=== PATIENT | male | born 1965 | race Caucasian/White ===

== ENCOUNTER 2021-07-13 23:20 | Inpatient (IN) | payer OTHER ==
[2021-07-14 01:30] VITALS: BMI 30.8
[2021-07-14] MEDS ORDERED: Ondansetron PF 4 MG/2 ML Vial IVP PRN (01:30)
[2021-07-14] MEDS ORDERED: Ondansetron ODT 4 MG TAB SL PRN (01:30)
[2021-07-14] MEDS ORDERED: Dextrose 5 %-0.45 % NaCl 1,000 ML IV SCH (01:30)
[2021-07-14] MEDS ORDERED: Acetaminophen 325 MG TAB PO PRN (01:30)
[2021-07-14] MEDS ORDERED: Acetaminophen 650 MG Suppository PR PRN (01:43)
[2021-07-14] MEDS: Sodium Chloride 0.9% 1,000 ML IV SCH ×3 (01:56→17:13)
[2021-07-14] MEDS ORDERED: Pantoprazole 40 MG VIAL IVP SCH (02:00)
[2021-07-14] MEDS ORDERED: hydrALAZINE 20 MG/ML VIAL SLOW IVP PRN (02:07)
[2021-07-14] MEDS ORDERED: Piperacillin/Tazobactam 3.375 GM in Sodium Chloride 0.9% 100 ML IVPB SCH (03:45)
[2021-07-14 04:13] LABS: #Lymphocytes 0.5 thou/uL (1.20-3.40); #Monocytes 0.2 thou/uL (0.11-0.59); #Neutrophils 1.9 thou/uL (1.40-6.50); %Basophils 0.7 % (0.0-1.0); %Eosinophils 0.8 % (0.0-10.0); %Lymphocytes 17.4 % (21.0-51.0); %Monocytes 8.8 % (0.0-10.0); %Neutrophils 72.4 % (42.0-75.0); Hemoglobin 15.4 g/dL (14.0-18.0); Mean Corpuscular HGB CONC 33.5 g/dL (32.0-36.0); Mean Corpuscular Hemoglobin 30.4 pg (27.0-31.0); Mean Corpuscular Volume 90.6 fL (78.0-98.0); Mean Platelet Volume 6.7 fL (7.4-10.4); Platelet Count 228 thou/uL (130-400); RBC Distribution Width 12.3 % (11.5-14.5); Red Blood Cell (RBC) Count 5.07 mill/uL (4.70-6.10); White Blood Cell (WBC) Count 2.7 thou/uL (4.8-10.8)
[2021-07-14 04:40] LABS: Phosphorus 3.2 mg/dL (2.3-4.7)
[2021-07-14 04:43] LABS: ALT (SGPT) 46 U/L (8-55); AST (SGOT) 45 U/L (5-34); Albumin 4.1 g/dL (3.5-5.0); Alkaline Phosphatase 116 U/L (40-110); Anion Gap 14 mmol/L (10-20); BUN (Urea Nitrogen) 17 mg/dL (8.4-25.7); Bilirubin, Total 1.2 mg/dL (0.2-1.2); Calc. Creatinine Clearance 86 mL/min (70-130); Calcium 8.5 mg/dL (7.8-10.44); Carbon Dioxide 22 mmol/L (22-29); Chloride 104 mmol/L (98-107); Globulin 2.7 g/dL (2.4-3.5); Glucose 135 mg/dL (70-105); Magnesium 1.8 mg/dL (1.6-2.6); Potassium 3.5 mmol/L (3.5-5.1); Protein, Total 6.8 g/dL (6.0-8.3); Sodium 136 mmol/L (136-145)
[2021-07-14] MEDS: Piperacillin/Tazobactam 3.375 GM in Sodium Chloride 0.9% 100 ML IVPB SCH ×2 (08:28→17:09)
[2021-07-14] MEDS: Pantoprazole 40 MG VIAL IVP SCH (08:28)
[2021-07-14 09:48] LABS: Iron 18 ug/dL (65-175); Iron Binding Capacity, Total 230 mcg/dL (261-462)
[2021-07-14 10:05] LABS: HBSAB Concentration Less than 8.00 mIU/mL; HBSAg Index 0.31 S/CO (0-0.99); Hep B Surf AB Non-Reactive (NonReactive); Hep B Surf Ag Non-Reactive S/CO (NonReactive)
[2021-07-14 10:06] LABS: Hep C IgG Ab Non-Reactive (NonReactive); Hep C Index 0.03 S/CO (0-0.79)
[2021-07-14] MEDS ORDERED: Cefepime 2 GM in Sodium Chloride 0.9% 100 ML IVPB SCH (11:00)
[2021-07-14] MEDS: VANCOMYCIN 1.25 GM/250 ML BAG 1.25 GM in Premix Bag 1 BAG IVPB SCH ×2 (13:08→23:07)
[2021-07-14] MEDS ORDERED: Iron, Sodium Ferric Gluconate 250 MG in Sodium Chloride 0.9% 250 ML 250 ML IVPB SCH (14:00)
[2021-07-14 15:48] LABS: SARS-CoV-2 PCR by NAA Not Detected (NotDetected)
[2021-07-14] MEDS: Acetaminophen 325 MG TAB PO PRN (21:11)
[2021-07-15] MEDS: Piperacillin/Tazobactam 3.375 GM in Sodium Chloride 0.9% 100 ML IVPB SCH ×2 (01:22→09:02)
[2021-07-15] MEDS: Sodium Chloride 0.9% 1,000 ML IV SCH ×3 (05:21→23:32)
[2021-07-15] MEDS: Acetaminophen 325 MG TAB PO PRN (05:26)
[2021-07-15 07:04] LABS: Hemoglobin 12.9 g/dL (14.0-18.0); Mean Corpuscular HGB CONC 33.7 g/dL (32.0-36.0); Mean Corpuscular Hemoglobin 30.7 pg (27.0-31.0); Mean Corpuscular Volume 91.3 fL (78.0-98.0); Mean Platelet Volume 7.4 fL (7.4-10.4); Platelet Count 199 thou/uL (130-400); Red Blood Cell (RBC) Count 4.21 mill/uL (4.70-6.10); White Blood Cell (WBC) Count 2.6 thou/uL (4.8-10.8)
[2021-07-15 07:05] LABS: INR-International Normal Ratio 1.2; Prothrombin Time 15.5 sec (12.0-14.7)
[2021-07-15] MEDS ORDERED: Ferrous Sulfate 325 MG TAB PO SCH (08:00)
[2021-07-15 08:01] LABS: Anion Gap 12 mmol/L (10-20); BUN (Urea Nitrogen) 11 mg/dL (8.4-25.7); Calc. Creatinine Clearance 114 mL/min (70-130); Calcium 8.6 mg/dL (7.8-10.44); Carbon Dioxide 24 mmol/L (22-29); Chloride 104 mmol/L (98-107); Glucose 92 mg/dL (70-105); Potassium 3.4 mmol/L (3.5-5.1); Sodium 137 mmol/L (136-145)
[2021-07-15 08:46] LABS: Band 2 % (5-11); Eosinophils 2 % (0-10); Lymphocytes 20 % (21-51); MDiff Complete? YES; Monocytes 10 % (0-10); Neutrophil 66 % (42-75); Platelet Morphology Comment Appears Adequate
[2021-07-15] MEDS: Pantoprazole 40 MG VIAL IVP SCH (09:02)
[2021-07-15] MEDS ORDERED: Potassium Chloride 20 MEQ TAB PO SCH (09:15)
[2021-07-15 11:38] LABS: Vancomycin, Trough 10.5 ug/mL
[2021-07-15] MEDS ORDERED: Vancomycin 1.5 GRAM/300 ML BAG 1.5 GM in Premix Bag 1 BAG IVPB SCH (12:00)
[2021-07-15 16:13] LABS: Ref Lab Test Ordered EHRLICHIA IGG/IGM; Reference Lab Name LABCORP
[2021-07-15 16:14] LABS: Ref Lab Test Ordered RICKETTSIA IGG/IGM; Reference Lab Name LABCORP
[2021-07-15] MEDS: Doxycycline 100 MG CAP PO SCH (20:44)
[2021-07-16] MEDS: Sodium Chloride 0.9% 1,000 ML IV SCH ×3 (05:37→23:57)
[2021-07-16 06:33] LABS: Anion Gap 12 mmol/L (10-20); BUN (Urea Nitrogen) 9 mg/dL (8.4-25.7); Calc. Creatinine Clearance 140 mL/min (70-130); Calcium 8.4 mg/dL (7.8-10.44); Carbon Dioxide 23 mmol/L (22-29); Chloride 106 mmol/L (98-107); Glucose 93 mg/dL (70-105); Potassium 3.5 mmol/L (3.5-5.1); Sodium 137 mmol/L (136-145)
[2021-07-16 06:55] LABS: Band 8 % (5-11); Hemoglobin 12.4 g/dL (14.0-18.0); Hypochromia SLIGHT = 6-15 cells (100X) (0-5/hpf); Lymphocytes 20 % (21-51); MDiff Complete? YES; Mean Corpuscular HGB CONC 32.6 g/dL (32.0-36.0); Mean Corpuscular Hemoglobin 29.9 pg (27.0-31.0); Mean Corpuscular Volume 91.7 fL (78.0-98.0); Monocytes 14 % (0-10); Neutrophil 56 % (42-75); Platelet Count 219 thou/uL (130-400); Platelet Morphology Comment Appears Adequate; RBC Distribution Width 12.1 % (11.5-14.5); Reactive Lymphocytes 2 % (0-10); Red Blood Cell (RBC) Count 4.14 mill/uL (4.70-6.10); White Blood Cell (WBC) Count 3.2 thou/uL (4.8-10.8)
[2021-07-16] MEDS: Pantoprazole 40 MG VIAL IVP SCH (08:42)
[2021-07-16] MEDS: Doxycycline 100 MG CAP PO SCH ×2 (08:42→20:26)
[2021-07-16] MEDS: Saccharomyces boulardii 250 MG CAP PO SCH (08:49)
[2021-07-17 06:14] LABS: Anion Gap 11 mmol/L (10-20); BUN (Urea Nitrogen) 10 mg/dL (8.4-25.7); Calc. Creatinine Clearance 145 mL/min (70-130); Calcium 8.5 mg/dL (7.8-10.44); Carbon Dioxide 25 mmol/L (22-29); Chloride 107 mmol/L (98-107); Glucose 96 mg/dL (70-105); Potassium 3.5 mmol/L (3.5-5.1); Sodium 139 mmol/L (136-145)
[2021-07-17 06:18] LABS: ALT (SGPT) 38 U/L (8-55); AST (SGOT) 48 U/L (5-34); Albumin 3.4 g/dL (3.5-5.0); Alkaline Phosphatase 104 U/L (40-110); Bilirubin, Direct 0.3 mg/dL (0.1-0.3); Bilirubin, Total 0.6 mg/dL (0.2-1.2); Protein, Total 5.8 g/dL (6.0-8.3)
[2021-07-17 06:29] LABS: Band 2 % (5-11); Eosinophils 2 % (0-10); Hemoglobin 12.3 g/dL (14.0-18.0); Lymphocytes 36 % (21-51); MDiff Complete? YES; Mean Corpuscular HGB CONC 33.9 g/dL (32.0-36.0); Mean Corpuscular Hemoglobin 31.1 pg (27.0-31.0); Mean Corpuscular Volume 91.9 fL (78.0-98.0); Mean Platelet Volume 6.9 fL (7.4-10.4); Monocytes 12 % (0-10); Neutrophil 40 % (42-75); Platelet Count 248 thou/uL (130-400); Platelet Morphology Comment Appears Adequate; RBC Distribution Width 12.1 % (11.5-14.5); RBC Morphology Normal; Reactive Lymphocytes 8 % (0-10); Red Blood Cell (RBC) Count 3.94 mill/uL (4.70-6.10); White Blood Cell (WBC) Count 3.8 thou/uL (4.8-10.8)
[2021-07-17] MEDS: Doxycycline 100 MG CAP PO SCH (08:21)
[2021-07-17] MEDS: Saccharomyces boulardii 250 MG CAP PO SCH (08:22)
[2021-07-17] MEDS: Pantoprazole 40 MG VIAL IVP SCH (08:22)
[2021-07-17] MEDS: Sodium Chloride 0.9% 1,000 ML IV SCH (08:22)
[2021-07-17 09:13] LABS: Alpha-1-Antitrypsin 202 mg/dL (101-187)
[2021-07-17 12:13] VITALS: BP 163/81; TEMP 97.6
[2021-07-17 14:38] LABS: Smooth Muscle Total ABS 3 Units (0-19)
[2021-07-18 12:37] LABS: EliA Vaculitis New Method **** NEW METHOD ****; Mitochondrial Ab Less than 0.5 U/mL (<4 Negative)
[2021-07-19 12:17] LABS: Bartonella henselae IgG Negative titer (Neg:<1:320); Bartonella henselae IgM Negative titer (Neg:<1:100); Bartonella quintana IgG Negative titer (Neg:<1:320); Bartonella quintana IgM Negative titer (Neg:<1:100)
== END 2021-07-17 12:18 | disposition home or self-care (01) | DRG 871 ==
LOC: T4-A 23:24 → OBSVTOIN 07-16 15:48
PROVIDERS: ADMIT Internal Medicine; ATTEND Internal Medicine
DX: A41.9 Sepsis, unspecified organism (principal); K85.90 Acute pancreatitis without necrosis or infection, unspecified; N17.9 Acute kidney failure, unspecified; A09 Infectious gastroenteritis and colitis, unspecified; I10 Essential (primary) hypertension; R65.20 Severe sepsis without septic shock; Z20.822 Contact with and (suspected) exposure to COVID-19; I50.9 Heart failure, unspecified; E86.0 Dehydration; E87.6 Hypokalemia; E88.09 Other disorders of plasma-protein metabolism, not elsewhere classified
CPT/HCPCS: 36415; 76705; 80048; 80053; 80076; 80202; 82103; 82728; 83516; 83540; 83550; 83630; 83690; 83735; 84100; 85025; 85610; 86015; 86611; 86706; 86709; 86720; 86803; 87040; 87045; 87046; 87328; 87329; 87340; 87427; 87449; 96374; 96375; 96376; C9113; G0378; J2543; J2916; J3370; J3490; J7050; U0003; U0005